=== PATIENT | male | born 1970 | race Caucasian/White ===

== ENCOUNTER → 2025-05-27 | Outpatient (CLI) | payer OTHER ==
[~2025-05-27] MED LIST: ACET500 PO; EPIPEN0.3 MG/0.3 IM; IBUP600 PO; TRAM50 PO
[2025-05-29 02:29] LABS: COTININE, URN, SCREEN Negative
== END ==
LOC: LAB 15:04 → LAB SHORT 15:04
PROVIDERS: Orthopaedic Surgery
DX: Z87.891 Personal history of nicotine dependence (principal)

== ENCOUNTER 2025-06-16 05:59 | Day surgery (SDC) | payer OTHER ==
[2025-06-16] VITALS (13 sets, daily range): BP systolic 112–126; BP diastolic 73–105
[~2025-06-16] VITALS: Ht 190.5 cm; Wt 94.0 kg
[2025-06-16] MEDS ORDERED: CeFAZolin Sodium 2,000 MG in NS 100 ML IV SCH ×2 (06:15→16:00)
[2025-06-16] MEDS ORDERED: Tranexamic Acid 100 ML IV SCH (06:15)
[2025-06-16] MEDS ORDERED: Ropivacaine 0.5% HCl/Pf 123.125 MG,EPINEPHrine HCL 0.25 MG,Ketorolac Tromethamine 15 MG... INFIL SCH (06:15)
[2025-06-16] MEDS ORDERED: Chlorhexidine Mouth Care 15 ML UDC MT SCH (06:15)
[2025-06-16] MEDS ORDERED: FentaNYL Citrate 50 MCG/ML 2 ML Injection ONE ×2 (07:26→09:47)
[2025-06-16] MEDS ORDERED: Midazolam HCl 1MG / ML 2ML Vial ONE (07:26)
[2025-06-16] MEDS ORDERED: ePHEDrine Sulfate 50 MG/ML 1ML Injection ONE (07:27)
--- NOTE | 2025-06-16 07:30 | NUR ---
History, Chart, Medications and Allergies reviewed before start of procedure.Patient confirms NPO status and agrees with scheduled surgery. Pre-Op teaching done. Pt verbalizes understanding. Patient reports completing Chlorhexadine shower X2 prior to admission to hospital.
[2025-06-16] MEDS ORDERED: FLU VACC TS2025-26(6MOS UP)/PF 45 MCG/0.5 ML SYRINGE IM SCH (09:20)
[2025-06-16] MEDS ORDERED: HYDROmorphone HCl/Pf 1MG SYR IV PRN (09:25)
[2025-06-16] MEDS ORDERED: Prochlorperazine Edisylate 10 mg Vial IV PRN (09:30)
[2025-06-16] MEDS ORDERED: Ondansetron HCl 2 MG / ML 2ML Vial IV PRN (09:30)
[2025-06-16] MEDS ORDERED: Magnesium Hydroxide Conc 10 ML UDC PO PRN (09:30)
[2025-06-16] MEDS ORDERED: Metoclopramide HCl 5MG / ML 2ML Vial IV PRN (09:30)
[2025-06-16] MEDS ORDERED: Ketorolac Tromethamine 15mg Vial IV SCH (12:00)
--- NOTE | 2025-06-16 12:41 | NUR ---
POST-OP PATIENT ARRIVES TO UNIT @1030 R HIP DRESSING IS C/D/I. ICE AND SCDS IN PLACE. PATIENT REPORTING PAIN 6/10 IN UPPER R THIGH. ABLE TO WIGGLE ALL EXTS. DENIES N/T. TOLERATING PO INTAKE. OXY GIVEN PER EMAR. CALL LIGHT IN REACH VSS.
[2025-06-16] MEDS ORDERED: ASPI81CH PO (12:52)
--- NOTE | 2025-06-16 16:38 | NUR ---
DISCHARGE PATIENT WALKS WITH THERAPY, TOLERATING PO INTAKE, HIP DRESSING IS C/D/I. DENIES N/T. ABLE TO VOID 300. ALL INSTRUCTIONS READ AND SIGNED. IV TAKEN OUT INTACT. ICE MACHINE AND BELONGINGS WITH PATIENT, HE IS WHEELED OUT TO PRIVATE CAR.
== END 2025-06-16 16:41 | disposition home or self-care (01) ==
LOC: ORSCMMR 05:59 → ORD 07:30 → ORSCMMR 07:30 → SURS 10:16 → ORSCMMR 16:41
PROVIDERS: Orthopaedic Surgery
PROC: 0SR90JZ Replacement of Right Hip Joint with Synthetic Substitute, Open Approach (ICD-10-PCS; principal; 2025-06-16 07:30)
DX: M16.11 Unilateral primary osteoarthritis, right hip (principal); I48.91 Unspecified atrial fibrillation; Z79.899 Other long term (current) drug therapy
CPT/HCPCS: 72170; 97116; 97161; 97530; A9270; C1776; J0166; J0690; J0735; J1885; J2250; J2704; J2795; J3010; J7120